=== PATIENT | female | born 1970 | race Caucasian/White ===

== ENCOUNTER → 2019-06-01 13:59 | Outpatient (CLI) | payer MEDICAID, SELFPAY ==
--- NOTE | 2019-06-01 14:02 | US_ITS ---
STUDY: THYROID ULTRASOUND REASON FOR EXAM: Female, 49 years old. Voice changes, evaluate nodule on palpation. TECHNIQUE: Ultrasound evaluation of the thyroid was performed with real-time and static hurley-scale imaging. COMPARISON: None. FINDINGS: RIGHT LOBE: The right lobe of the thyroid gland measures 5.4 x 2.3 x 2.0 cm. There is a homogeneous echotexture. There are no demonstrated solid, cystic or complex lesions. LEFT LOBE: The left lobe of the thyroid gland measures 5.2 x 1.9 x 1.2 cm. There is a homogeneous echotexture. There are no demonstrated solid, cystic or complex lesions. ISTHMUS: The isthmus measures 3.0 mm. The regional lymph nodes are normal. US/Thyroid IMPRESSION: Normal ultrasound examination of the thyroid. Electronically Signed: Lizeth Farias MD at 0:11 EST , Service support ,
== END ==
PROVIDERS: Family Provider Family Medicine; PCP Family Medicine; Referring Provider Family Medicine; Visit Provider Family Medicine
DX: E04.1 Nontoxic single thyroid nodule (principal)
CPT/HCPCS: 76536

== ENCOUNTER → 2019-09-25 16:33 | Outpatient (CLI) | payer MEDICAID, SELFPAY ==
[2016-10-03 00:17] VITALS: BMI 26.4
[2019-09-25 17:11] LABS: Absolute Lymphocyte Count 2.24 X10^3/uL (0.83-4.51); Absolute Neutrophil Count 2.9 X10^3/uL (2.0-7.7); Basophil# 0.02 X10^3/uL; Basophil% 0.3 % (0-1); Eosinophil# 0.25 X10^3/uL; Eosinophils% 4.2 % (0-5); Hematocrit 47.2 % (37-47); Hemoglobin 15.6 g/dL (12.0-15.0); Lymphocyte # 2.24 X10^3/ul (4.0); Mean Corp Hgb Conc 33.1 g/dL (32-36); Mean Corpuscular Hgb 30.8 pg (27.0-32.0); Mean Corpuscular Volume 93.3 fL (81-99); Mean Platelet Vol. 10.9 fl (6.2-12.0); Monocyte# 0.45 X10^3/uL; Monocyte% 7.6 % (0-10); NRBC Flagged by Analyzer 0 % (0-5); Neutrophil # 2.93 X10^3/uL (2.7-7.7); Neutrophil % 49.7 % (47-70); Platelet Count 198 K/mm3 (150-450); RBC Distribution Width CV 12.3 % (11.6-14.6); RBC Distribution Width SD 42.3 fl (35.1-43.9); Red Blood Count 5.06 M/mm3 (4.2-5.4); White Blood Count 5.9 K/mm3 (4.4-11.0)
[2019-09-25 17:50] LABS: Anion Gap 4 (5-15); BUN 8 mg/dL (7-18); BUN/Creat Ratio 10.2 RATIO (10-20); Calcium,Total 9.1 mg/dL (8.5-10.1); Chloride 103 mmol/L (98-107); Creatinine, Serum 0.78 mg/dL (0.55-1.02); EST Glomerular Filtration Rate 84 mL/min (>60); Est Glom Filt Rate - Afr Amer 101 mL/min (>60); Glucose 61 mg/dL (74-106); Potassium 3.1 mmol/L (3.5-5.1); Sodium Level 138 mmol/L (136-145); Thyroid Stim Hormone (TSH) 0.67 uIU/mL (0.358-3.74)
== END ==
PROVIDERS: PCP Family Medicine; Visit Provider Family Medicine
DX: J45.909 Unspecified asthma, uncomplicated (principal); F17.200 Nicotine dependence, unspecified, uncomplicated; R53.83 Other fatigue; R63.4 Abnormal weight loss
CPT/HCPCS: 36415; 80048; 84443; 85025

== ENCOUNTER → 2020-12-06 14:00 | Outpatient (CLI) | payer MEDICAID, SELFPAY ==
[2016-10-03 00:17] VITALS: BMI 26.4
[2020-12-06 16:14] LABS: Anion Gap 5 (5-15); BUN 9 mg/dL (7-18); Calcium,Total 9.1 mg/dL (8.5-10.1); Chloride 105 mmol/L (98-107); Creatinine, Serum 0.69 mg/dL (0.55-1.02); EST Glomerular Filtration Rate 96 mL/min (>60); Est Glom Filt Rate - Afr Amer 116 mL/min (>60); Glucose 80 mg/dL (74-106); Potassium 3.4 mmol/L (3.5-5.1); Sodium Level 138 mmol/L (136-145); T4 Free Direct 1.07 ng/dL (0.76-1.46); Thyroid Stim Hormone (TSH) 1.39 uIU/mL (0.358-3.74)
== END ==
PROVIDERS: PCP Family Medicine; Referring Provider Family Medicine; Visit Provider Family Medicine
DX: E03.9 Hypothyroidism, unspecified (principal); E87.6 Hypokalemia
CPT/HCPCS: 36415; 80048; 84439; 84443

== ENCOUNTER → 2022-05-31 | Outpatient (CLI) | payer MEDICAID, SELFPAY ==
--- NOTE | 2022-05-31 17:59 | MRI_ITS ---
STUDY: MRI BRAIN WITH AND WITHOUT CONTRAST REASON FOR EXAM: Female, 52 years old. Migraine headaches; Hx loss of consciousness -- With attention to the pituitary fossa TECHNIQUE: Standardized multiplanar fat and water weighted pulse sequences were obtained. IV 10 cc clariscan was administered for the contrast portion of the examination. COMPARISON: None. FINDINGS: Normal size of the ventricles and extra-axial spaces for the patient''s age. Normal white matter tracts of the supratentorial brain. Normal bilateral basal ganglia. Normal thalami. There is no extra-axial fluid accumulation. Normal flow voids within the major intracranial circulation suggesting patency by spin echo criteria. Normal venous enhancement. There is no enhancing intra-axial or extra-axial abnormality. Pituitary is normal in size for stated age measuring approximately 7 x 11.8 x 6 mm and demonstrates homogeneous enhancement following contrast administration. Normal Infundibular stalk, optic chiasm and hypothalamus. Normal tectal plate and pineal gland. Normal midbrain, sunil and medulla. Normal cerebellum. Normal basal cisterns. Normal bilateral temporal bones. Normal bilateral internal auditory canals. No demonstrated orbital abnormality, within the constraints of a routine brain study. Normal visualized paranasal sinuses. Normal calvarium and skull base. Normal visualized soft tissue structures. Normal visualized upper cervical spine. MRI/Brain W/WO Contrast IMPRESSION: Normal unenhanced and enhanced MRI of the brain. No evidence for pituitary mass. Microadenoma may be considered however if clinically warranted Electronically Signed: Omar Bain MD at 21:54 EST ,
[2022-05-31 19:01] LABS: CREATININE FINGERSTICK < 0.9 mg/dL (0.55-1.02); EGFR FINGERSTICK > 60.0000 mL/min (>60)
== END | disposition home or self-care (01) ==
LOC: PSN 17:59
PROVIDERS: PCP Nurse Practitioner Family; Referring Provider Psychiatry & Neurology Neurology; Visit Provider Psychiatry & Neurology Neurology
DX: D35.2 Benign neoplasm of pituitary gland (principal); G40.909 Epilepsy, unspecified, not intractable, without status epilepticus; G43.909 Migraine, unspecified, not intractable, without status migrainosus
CPT/HCPCS: 70553; A9575

== ENCOUNTER → 2022-06-05 | Outpatient (CLI) | payer MEDICAID, SELFPAY ==
--- NOTE | 2022-06-05 10:22 | TELEMED_ITS ---
[facility] has confirmed receipt of a request for visit. This document confirms receipt of the order initiating the consult. To find the results of the consultation, please view the patient's reports for the scanned Telemed Consult.
== END | disposition home or self-care (01) ==
LOC: PSN 09:08
PROVIDERS: PCP Nurse Practitioner Family; Referring Provider Psychiatry & Neurology Neurology; Visit Provider Psychiatry & Neurology Neurology
DX: G40.909 Epilepsy, unspecified, not intractable, without status epilepticus (principal); G43.109 Migraine with aura, not intractable, without status migrainosus
CPT/HCPCS: 95819

== ENCOUNTER 2022-10-19 01:43 | Emergency (ER) | payer MEDICAID, SELFPAY ==
[2022-10-19 01:47] VITALS: BP 143/93; PULSE 98; RESP 18; TEMP 36.6; O2SAT 100; BMI 25.4
--- NOTE | 2022-10-19 02:19 | RAD_ITS ---
INDICATION: cough sob EXAMINATION/TECHNIQUE: X-RAY - XR Chest 1 View COMPARISON: None. FINDINGS: LINES/DEVICES: None. LUNGS: No consolidation, edema or effusion. No pneumothorax. MEDIASTINUM AND CARDIOVASCULAR STRUCTURES: Cardiac silhouette not enlarged. BONES AND SOFT TISSUES: Unremarkable. RAD/Chest 1 View (Portable) IMPRESSION: No radiographic evidence of acute cardiopulmonary disease. Electronically Signed: Wan Lofton MD at 3:35 EDT ,
--- NOTE | 2022-10-19 02:20 | EKG12_ITS ---
Test Reason : DYSRHYTHMIA Blood Pressure : / mmHG Vent. Rate : 090 BPM Atrial Rate : 090 BPM P-R Int : 154 ms QRS Dur : 084 ms QT Int : 390 ms P-R-T Axes : 071 063 070 degrees QTc Int : 477 ms Normal sinus rhythm Normal ECG Confirmed by KYLE HURST, PATY ([id number]), digital editor CORAZON MARI ([id number]) on 10/22/2022 10:57:35 AM Referred By: SHAGGY Confirmed By:ALEJANDRA WRIGHT MD
--- NOTE | 2022-10-19 02:20 | CT_ITS ---
INDICATION: altered LOC EXAMINATION: CT BRAIN - CT Head or Brain W/O Contrast Injection TECHNIQUE: Multiple axial images were obtained of the head without intravenous contrast. A radiation dose optimization technique was used for this scan. IV Contrast dosage and agent: None. COMPARISON: MRI brain May 31, 2022 FINDINGS: BRAIN PARENCHYMA: No intra- or extra-axial hemorrhage. No evidence of acute infarct. No intracranial mass or mass effect. Unremarkable white matter for age. There is preservation of the hurley/white matter interface. Posterior fossa structures are unremarkable. CSF SPACES: Cerebral volume appropriate for age. No hydrocephalus. Basal cisterns are patent. CALVARIUM, SKULL BASE, PARANASAL SINUSES AND MASTOID AIR CELLS: No acute osseous finding. Paransasal sinuses are clear. Mastoid air cells are clear. ORBITS: Both globes, extraocular muscles, optic nerves and retrobulbar fat appear unremarkable. ASPECTS Score for Acute Strokes: 10 CT/Brain/Head without Contrast IMPRESSION: Negative Brain CT without contrast. Electronically Signed: Wan Lofton MD at 3:59 EDT ,
--- NOTE | 2022-10-19 02:21 | EX.ED.DYSGE1 ---
HPI History of Present Illness Chief Complaint: General Illness Narrative Narrative: From EMS report, the patient was driving and pulled over to sleep. Police checked her out and she was extremely somnolent and they called EMS, who transported her here for being abnormally lethargic. Limited evaluation since the patient is nonverbal at this time and very lethargic. [facility] Medical History Anxiety Arthritis Carpal tunnel syndrome Chronic constipation COPD (chronic obstructive pulmonary disease) Depression Dyslipidemia Eczema Fibromyalgia Heart disease History of blood transfusion History of breast lump Hypertension Hypoglycemia Hypokalemia Lumbar radiculopathy, right Neuropathy Osteoarthritis of right hip Home Medications potassium chloride 20 mEq tablet,extended release(part/cryst) (Klor-Con M) 20 meq PO DAILY 04/24/16 [History Last Taken 09/29/16] folic acid 1 mg tablet 1 mg PO DAILY 07/19/21 [History Last Taken Unknown] gabapentin 300 mg capsule 300 mg PO TID 07/19/21 [History Last Taken Unknown] loratadine 10 mg tablet 10 mg PO DAILY 07/19/21 [History Last Taken Unknown] montelukast 10 mg tablet 10 mg PO DAILY 07/19/21 [History Last Taken Unknown] oxybutynin chloride 5 mg tablet 5 mg PO DAILY 07/19/21 [History Last Taken Unknown] thiamine HCl (vitamin B1) 100 mg tablet 100 mg PO DAILY 07/19/21 [History Last Taken Unknown] topiramate 50 mg tablet 50 mg PO BID #60 tabs 02/15/22 [Rx Last Taken Unknown] ubrogepant 50 mg tablet (Ubrelvy) 50 mg .Route .COMPLEX #14 tabs 02/15/22 [Rx Last Taken Unknown] Allergy/AdvReac Type Severity Reaction Status Date / Time aspirin [ASA] Allergy Hives Verified 10/19/22 02:07 Penicillins [PCN] Allergy Hives Verified 10/19/22 02:07 cephalexin [From Keflex] AdvReac Unknown Verified 10/19/22 02:07 Surgical History History of appendectomy History of bladder surgery History of breast surgery History of cholecystectomy History of hand surgery History of partial hysterectomy Social History Smoking Status: Current some day smoker tobacco type: cigarettes second hand exposure: Yes alcohol intake: former substance use type: marijuana ROS ROS ED Review of Systems ROS Unobtainable: due to mental status EXAM Physical Exam Const Vital Signs: 10/19/22 01:47 10/19/22 01:51 10/19/22 04:27 Temperature 98 F Temperature Source Temporal Pulse Rate 98 91 Respiratory Rate 18 12 Respiratory Pattern Normal Blood Pressure 143/93 H 151/94 H Blood Pressure Mean 109 113 Pulse Ox 100 98 Oxygen Delivery Method Room Air Room Air Positive well nourished and well developed Constitutional Narrative: Very lethargic General Appearance ED: well developed HEENT Reports moist mucous membranes normocephalic and atraumatic Eyes PERRL and EOMs intact bilaterally Neck full ROM, no lymphadenopathy and supple Neck Narrative: No meningismus Chest Wall inspection of chest normal and palpation of chest normal Resp normal respiratory effort and clear to auscultation bilaterally Cardio regular rate, regular rhythm and no murmurs Rate: Negative for bradycardia or tachycardic GI non-tender, non-distended and no masses Auscultation: normoactive bowel sounds Palpation: soft Back/Spine no CVA tenderness General Back: other FROM Extremity normal to inspection General Extremety ED: Negative for edema, pulses abnormal or tenderness General Extremity: Negative for edema or pulses abnormal Neuro CN's II-XII intact bilaterally and no sensory deficits noted Neuro Narrative: Very lethargic. Moans in response to questions, too lethargic to follow commands. Airway and breathing intact. Localizing to pain in all 4 extremities equally. Fenton Coma Scale: document GCS findings To Pain Localizes to Pain Incomprehensible 9 Skin no rashes or lesions noted and no wounds MDM MDM MDM Narrative Medical decision making narrative: I reviewed EMR records, showing that she has a history of COPD. She is currently not hypoxic and not on exogenous oxygenation. Wide differential here, including primary [employer] pathology, respiratory infection, hypercapnia, metabolic disorder, cardiopulmonary etiology. This is not an all-inclusive list. And attempting to get an ABG and rule out acute hypercapnia, the patient was verbally and physically fighting a respiratory therapist saying no I do not want that. Therefore it was canceled. In working her up, her D-dimer is elevated, her chest x-ray 1 view shows COPD hyperexpansion but is otherwise negative for any acute infiltrates or pneumothorax. Therefore she was sent for CT angiography of the chest, after the CT of the head that we obtained, those images appear normal, and those of the chest appear normal as well. I reviewed the interpretation for both of the studies, and I agree with the radiologist's interpretation of them both. The rest of her work-up is unremarkable except for slightly low potassium at 3.3 and toxicology positive for amphetamines, there are many medications that can cross-react with this screening test, however the ones that she has according to the EMR to my knowledge do not cross-react with it. All of this is academic, I do not think that amphetamine intoxication would necessarily be causing her to be overly tired anyhow. There is no specific treatment indicated for any of the CT chest findings. On reevaluation, she is arousable and able to talk, but sleepy. When asked if she did not get much sleep last night, she nods yes, and when asked if she has any recent illness or cold symptoms she states no. Therefore since the work-up was unremarkable except for potassium, I will give her a dose of IV potassium while she has been observed here. Her vital signs are normal, she is not hypoxic, she has no evidence of metabolic acidosis, and if she is awake and alert enough to refuse the ABG, I do not think checking a stat PCO2 is necessary. When she is awake enough to get out of bed and function more normally, she may be discharged home. Lab Data Attestation: I reviewed the patient's lab results. Labs: Laboratory Results - last 24 hr 10/19/22 10/19/22 10/19/22 02:30 02:30 02:30 WBC 4.6 RBC 4.43 Hgb 13.6 Hct 41.0 MCV 92.6 MCH 30.7 MCHC 33.2 RDW Std Deviation 42.7 RDW Coeff of Jake 12.4 Plt Count 188 MPV 10.0 Immature Gran % (Auto) 0.200 Neut % (Auto) 46.1 L Lymph % (Auto) 39.6 [place] % (Auto) 10.0 Eos % (Auto) 3.7 Baso % (Auto) 0.4 Absolute Neuts (auto) 2.1 Absolute Lymphs (auto) 1.83 Nucleated RBC % 0 D-Dimer Quant (PE/DVT) 0.69 H* Sodium 140 Potassium 3.3 L Chloride 104 Carbon Dioxide 32.0 Anion Gap 4 L BUN 14 Creatinine 0.59 Estim Creat Clear Calc 81.94 Est GFR (MDRD) Af Amer 138 Est GFR (MDRD) Non-Af 114 BUN/Creatinine Ratio 23.7 H Glucose 107 H Calcium 9.3 Troponin I High Sens 4 B-Natriuretic Peptide Urine Color Urine Clarity Urine pH Ur Specific [place] Urine Protein Urine Glucose (UA) Urine Ketones Urine Occult Blood Urine Nitrite Urine Bilirubin Urine Urobilinogen Ur Leukocyte Esterase Urine RBC Urine WBC Ur Squamous Epith Cells Urine Bacteria Urine Mucus Urine Opiates Screen Urine Methadone Screen Ur Barbiturates Screen Ur Phencyclidine Scrn Ur Amphetamines Screen MDMA (Ecstasy) Screen U Benzodiazepines Scrn Urine Cocaine Screen U Cannabinoids Screen Ur Drug Screen Comment Ethyl Alcohol 10/19/22 10/19/22 10/19/22 02:30 02:45 02:45 WBC RBC Hgb Hct MCV MCH MCHC RDW Std Deviation RDW Coeff of Jake Plt Count MPV Immature Gran % (Auto) Neut % (Auto) Lymph % (Auto) [place] % (Auto) Eos % (Auto) Baso % (Auto) Absolute Neuts (auto) Absolute Lymphs (auto) Nucleated RBC % D-Dimer Quant (PE/DVT) Sodium Potassium Chloride Carbon Dioxide Anion Gap BUN Creatinine Estim Creat Clear Calc Est GFR (MDRD) Af Amer Est GFR (MDRD) Non-Af BUN/Creatinine Ratio Glucose Calcium Troponin I High Sens B-Natriuretic Peptide 6.7 Urine Color Yellow Urine Clarity Clear Urine pH 7.0 Ur Specific [place] 1.010 Urine Protein 15 H Urine Glucose (UA) Normal Urine Ketones Negative Urine Occult Blood Negative Urine Nitrite Negative Urine Bilirubin Negative Urine Urobilinogen Normal Ur Leukocyte Esterase 25 H Urine RBC 0 SEEN Urine WBC 0 SEEN Ur Squamous Epith Cells 0 SEEN Urine Bacteria 0 SEEN Urine Mucus 0 SEEN Urine Opiates Screen NEGATIVE Urine Methadone Screen NEGATIVE Ur Barbiturates Screen NEGATIVE Ur Phencyclidine Scrn NEGATIVE Ur Amphetamines Screen POSITIVE H MDMA (Ecstasy) Screen NEGATIVE U Benzodiazepines Scrn NEGATIVE Urine Cocaine Screen NEGATIVE U Cannabinoids Screen NEGATIVE Ur Drug Screen Comment Ethyl Alcohol 10/19/22 03:44 WBC RBC Hgb Hct MCV MCH MCHC RDW Std Deviation RDW Coeff of Jake Plt Count MPV Immature Gran % (Auto) Neut % (Auto) Lymph % (Auto) [place] % (Auto) Eos % (Auto) Baso % (Auto) Absolute Neuts (auto) Absolute Lymphs (auto) Nucleated RBC % D-Dimer Quant (PE/DVT) Sodium Potassium Chloride Carbon Dioxide Anion Gap BUN Creatinine Estim Creat Clear Calc Est GFR (MDRD) Af Amer Est GFR (MDRD) Non-Af BUN/Creatinine Ratio Glucose Calcium Troponin I High Sens B-Natriuretic Peptide Urine Color Urine Clarity Urine pH Ur Specific [place] Urine Protein Urine Glucose (UA) Urine Ketones Urine Occult Blood Urine Nitrite Urine Bilirubin Urine Urobilinogen Ur Leukocyte Esterase Urine RBC Urine WBC Ur Squamous Epith Cells Urine Bacteria Urine Mucus Urine Opiates Screen Urine Methadone Screen Ur Barbiturates Screen Ur Phencyclidine Scrn Ur Amphetamines Screen MDMA (Ecstasy) Screen U Benzodiazepines Scrn Urine Cocaine Screen U Cannabinoids Screen Ur Drug Screen Comment Ethyl Alcohol < 3.0 Radiography Diagnostic Testing: Clinical Impression(s) from Imaging Studies Chest X-Ray 10/19/22 02:19 IMPRESSION: No radiographic evidence of acute cardiopulmonary disease. Electronically Signed: Wan Lofton MD at 3:35 EDT , Brain CT 10/19/22 02:20 IMPRESSION: Negative Brain CT without contrast. Electronically Signed: Wan Lofton MD at 3:59 EDT , Chest CTA 10/19/22 03:30 IMPRESSION: No evidence of pulmonary embolism Mild peribronchial thickening as can be seen with bronchitis/bronchiolitis with focal endobronchial mucous or debris within posterior left lower lobe bronchus. Mild associated dependent left lower lobe subsegmental atelectasis. Electronically Signed: Wan Lofton MD at 4:52 EDT , Rhythm Strip Rhythm Strip: Sinus Rhythm Rate: 90 Ectopy: None EKG Initial EKG: Attestation: I personally reviewed and interpreted this EKG as follows: Interpretation: Sinus Rhythm and No Acute Injury Pattern Discharge Plan Triage Chief Complaint: General Illness ED Provider: Miguel Saul Dx/Rx/DC Orders Clinical Impression: Somnolence Instructions: ED ALOC Prescriptions: No Action oxybutynin chloride 5 mg tablet 5 mg PO DAILY folic acid 1 mg tablet 1 mg PO DAILY thiamine HCl (vitamin B1) 100 mg tablet 100 mg PO DAILY loratadine 10 mg tablet 10 mg PO DAILY montelukast 10 mg tablet 10 mg PO DAILY gabapentin 300 mg capsule 300 mg PO TID Ubrelvy 50 mg tablet 50 mg .ROUTE .COMPLEX Qty: 14 4RF Rx Instructions: Take one tablet PO daily every 2 hours as needed for headache up to two tablets daily. topiramate 50 mg tablet 50 mg PO BID Qty: 60 4RF Rx Instructions: Begin after completing 1 week course of topiramate 25 mg twice a day potassium chloride [Klor-Con M20] 20 MEQ tablet 20 meq PO DAILY Primary Care Provider: Shari Mondragon NP Referrals: Shari Mondragon NP, [employer] [Primary Care Provider] - As Needed Disposition Disposition: Home, Self Care
[2022-10-19 02:38] LABS: Absolute Lymphocyte Count 1.83 X10^3/uL (0.83-4.51); Absolute Neutrophil Count 2.1 X10^3/uL (2.0-7.7); Basophil# 0.02 X10^3/uL; Basophil% 0.4 % (0-1); Eosinophil# 0.17 X10^3/uL; Eosinophils% 3.7 % (0-5); Hemoglobin 13.6 g/dL (12.0-15.0); Lymphocyte # 1.83 X10^3/ul (0.83-4.51); Lymphocyte % 39.6 % (19-41); Mean Corp Hgb Conc 33.2 g/dL (32-36); Mean Corpuscular Hgb 30.7 pg (27.0-32.0); Mean Corpuscular Volume 92.6 fL (81-99); Monocyte# 0.46 X10^3/uL; NRBC Flagged by Analyzer 0 % (0-5); Neutrophil # 2.13 X10^3/uL (2.7-7.7); Neutrophil % 46.1 % (47-70); Platelet Count 188 K/mm3 (150-450); RBC Distribution Width CV 12.4 % (11.6-14.6); RBC Distribution Width SD 42.7 fl (35.1-43.9); Red Blood Count 4.43 M/mm3 (4.2-5.4); White Blood Count 4.6 K/mm3 (4.4-11.0)
[2022-10-19 02:56] LABS: Anion Gap 4 (5-15); BNP,B-Type NATRIURETIC PEPTIDE 6.7 pg/mL (0-100); BUN 14 mg/dL (7-18); BUN/Creat Ratio 23.7 RATIO (10-20); Calcium,Total 9.3 mg/dL (8.5-10.1); Chloride 104 mmol/L (98-107); Creatinine, Serum 0.59 mg/dL (0.55-1.02); EST Glomerular Filtration Rate 114 mL/min (>60); Est Glom Filt Rate - Afr Amer 138 mL/min (>60); Estimated Creatinine Clearance 81.94 ml/min; Glucose 107 mg/dL (74-106); Potassium 3.3 mmol/L (3.5-5.1); Sodium Level 140 mmol/L (136-145); Troponin-I HS 4 pg/mL (3.0-54.0)
[2022-10-19 03:01] LABS: D-Dimer Quantitative (DVT/PE) 0.69 FEU/ug/m (0.27-0.49)
[2022-10-19 03:28] LABS: Amphetamine Urine VISTA POSITIVE (<1000 ng/mL); Barbiturate Urine VISTA NEGATIVE (< 200 ng/mL); Benzodiazepine Urine VISTA NEGATIVE (< 200 ng/mL); Cocaine Urine VISTA NEGATIVE (< 300 ng/mL); Ecstacy Urine VISTA NEGATIVE (< 500 ng/mL); Methadone Urine VISTA NEGATIVE (< 300 ng/mL); PCP Urine VISTA NEGATIVE (< 25 ng/mL); THC Urine VISTA NEGATIVE (< 50 ng/mL); Vista UDS pH Range 7
--- NOTE | 2022-10-19 03:30 | CT_ITS ---
STUDY: CTA CHEST REASON FOR EXAM: Female, 52 years old. lethargic, elevated d-dimer RADIATION DOSAGE (If Supplied By Facility): CTDIvol = ( 11.58 ) mGy, DLP = ( 284.49 ) mGycm TECHNIQUE: The examination was performed with the intravenous administration of IV 75mL Isovue-370. Post-processing of the angiographic images was performed, with multiplanar reformation and 3D reconstruction. Individualized dose optimization techniques were used for this CT. COMPARISON: Chest radiograph October 19, 2022. FINDINGS: Normal thyroid. Normal enhancement of the bilateral peripheral pulmonary arteries. There is no demonstrated pulmonary embolism. No aortic dissection or aneurysmal dilatation. Mild scattered aortic atherosclerosis. Normal heart and pericardium. No densely calcified coronary atherosclerosis. No mediastinal or hilar adenopathy. Mild bilateral peribronchial thickening with endobronchial mucus or fluid in the posterior left lower lobe. Mild subsegmental atelectasis in left lung base. No consolidation, effusion, pneumothorax. Apical scarring with small bulla. Normal osseous structures. Normal visualized upper abdomen. CT/CTA Chest W/WO Contrast IMPRESSION: No evidence of pulmonary embolism Mild peribronchial thickening as can be seen with bronchitis/bronchiolitis with focal endobronchial mucous or debris within posterior left lower lobe bronchus. Mild associated dependent left lower lobe subsegmental atelectasis. Electronically Signed: Wan Lofton MD at 4:52 EDT ,
[2022-10-19 04:22] LABS: Alcohol, Blood (Medical)-Serum < 3.0 mg/dL
[2022-10-19 04:27] VITALS: BP 151/94; PULSE 91; RESP 12; O2SAT 98
[2022-10-19 04:56] LABS: Bacteria 0 SEEN /hpf (None Seen); Mucous, Urine 0 SEEN /hpf (<or=2+); Red Blood Cells-Urine 0 SEEN /hpf (0-5); Squamous Epithelial Cells - UA 0 SEEN /hpf (5-10); White Blood Cells 0 SEEN /hpf (0-5)
[2022-10-19 05:03] LABS: Glucose, Dipstick Normal (Normal); Ketone-Dipstick Negative (Negative); Leukocyte Esterase-Dipstick 25 /ul (Negative); Nitrite-Dipstick Negative (Negative); Occult Blood-Urine Negative /ul (Negative); Protein-Dipstick 15 mg/dl (Negative); Urine Bilirubin Dipstick Negative (Negative); Urine Urobilinogen Normal (Normal)
[2022-10-19 05:04] LABS: Color, Urine Yellow (Yellow); Urine Clarity Clear (Clear)
[2022-10-19 05:13] VITALS: BP 151/88; PULSE 91; RESP 11; O2SAT 99
[2022-10-19 06:00] VITALS: BP 143/105; PULSE 93; RESP 11; O2SAT 99
--- NOTE | 2022-10-19 07:55 | ED.RN ---
WAKES WITH GENTLE TOUCH. ASSISTED TO BATHROOM. PT TO CHARGE PHONE IN WAITING ROOM SO SHE CAN CALL DAUGHTER FOR A RIDE.
== END 2022-10-19 07:58 | disposition home or self-care (01) ==
PROVIDERS: Emergency Medicine; Emergency Provider Emergency Medicine; PCP Nurse Practitioner Family; Visit Provider Emergency Medicine
DX: R40.0 Somnolence (principal); J44.9 Chronic obstructive pulmonary disease, unspecified; E87.6 Hypokalemia; I10 Essential (primary) hypertension; F17.210 Nicotine dependence, cigarettes, uncomplicated; Z79.899 Other long term (current) drug therapy
CPT/HCPCS: 70450; 71045; 71275; 80048; 80307; 81001; 82077; 83880; 84484; 85025; 85379; 87428; 93005; 99285; Q9967; A4216

== ENCOUNTER 2023-10-03 11:01 | Emergency (ER) | payer MEDICAID, SELFPAY ==
[2023-10-03] VITALS (12 sets, daily range): BP systolic 101–136; BP diastolic 69–103; PULSE 80–107; RESP 12–18; TEMP 36.6–36.8; O2SAT 95–99; BMI 23.9
--- NOTE | 2023-10-03 13:19 | EX.ED.DYSGE1 ---
HPI History of Present Illness Chief Complaint: Weakness Informant: patient Onset/Context/Timing Onset: Weeks (2) Context: Gradual Onset Timing: Continuous Quality: Numbness and tingling Location: Bilateral lower extremities, worse on the right Worsened by: Nothing Relieved by: Nothing Narrative Narrative: Patient presents with numbness, tingling, and weakness in her legs that has been getting worse over the past 2 weeks. Patient was at physical therapy today. Patient was describing her symptoms to the physical therapist. Patient stated she was having pressure over her bladder after she was urinating. Patient states she has had some incontinence of urine. Patient states she still feels the urge to urinate. Patient admits to some numbness over her thighs. Patient states it is worse on the right. Patient states she has bulging disks at L3-L4 and L4-L5. [facility] Medical History Anxiety Arthritis Carpal tunnel syndrome Chronic constipation COPD (chronic obstructive pulmonary disease) Depression Dyslipidemia Eczema Fibromyalgia Heart disease History of blood transfusion History of breast lump Hypertension Hypoglycemia Hypokalemia Lumbar radiculopathy, right Neuropathy Osteoarthritis of right hip Home Medications potassium chloride 20 mEq tablet,extended release(part/cryst) (Klor-Con M) 20 meq PO DAILY 04/24/16 [History Last Taken 09/29/16] folic acid 1 mg tablet 1 mg PO DAILY 07/19/21 [History Last Taken Unknown] gabapentin 300 mg capsule 300 mg PO TID 07/19/21 [History Last Taken Unknown] loratadine 10 mg tablet 10 mg PO DAILY 07/19/21 [History Last Taken Unknown] oxybutynin chloride 5 mg tablet 5 mg PO DAILY 07/19/21 [History Last Taken Unknown] thiamine HCl (vitamin B1) 100 mg tablet 100 mg PO DAILY 07/19/21 [History Last Taken Unknown] topiramate 50 mg tablet 50 mg PO BID #60 tabs 02/15/22 [Rx Last Taken Unknown] ubrogepant 50 mg tablet (Ubrelvy) 50 mg .Route .COMPLEX #14 tabs 02/15/22 [Rx Last Taken Unknown] aripiprazole 5 mg tablet 5 mg PO DAILY 10/03/23 [History Last Taken Unknown] celecoxib 200 mg capsule 200 mg PO DAILY 10/03/23 [History Last Taken Unknown] Allergy/AdvReac Type Severity Reaction Status Date / Time aspirin [ASA] Allergy Hives Verified 10/03/23 11:03 Penicillins [PCN] Allergy Hives Verified 10/03/23 11:03 cephalexin [From Keflex] AdvReac Unknown Verified 10/03/23 11:03 Surgical History History of appendectomy History of bladder surgery History of breast surgery History of cholecystectomy History of hand surgery History of partial hysterectomy Social History Smoking Status: Light Smoker (<10/day) second hand exposure: Yes alcohol intake: former substance use type: marijuana ROS ROS ED Constitutional Constitutional ED: Denies chills or fever(s) Eyes Eyes: Denies blurry vision or change in vision ENT ENT ED: Denies rhinorrhea or sore throat Cardiovascular Cardiovascular: Denies chest pain or palpitations Respiratory/Chest Respiratory/Chest: Denies cough or dyspnea Gastrointestinal Gastrointestinal: Denies nausea or vomiting Genitourinary Genitourinary ED: Denies dysuria or hematuria Musculoskeletal Musculoskeletal: Reports back pain; Denies neck pain Integumentary Denies abscess or rash Neurologic Neurologic: Denies headache(s) or weakness Allergic/Immunologic Allergic/Immunologic ED: Denies mouth swelling or urticaria EXAM Physical Exam Const Vital Signs: 10/03/23 11:03 10/03/23 12:06 Temperature 98.3 F Temperature Source Temporal Pulse Rate 102 H 100 Respiratory Rate 18 18 Blood Pressure 119/92 H 127/90 H Blood Pressure Mean 101 102 Pulse Ox 98 99 Oxygen Delivery Method Room Air Room Air Positive well nourished and well developed General Appearance ED: well developed and NAD HEENT Reports moist mucous membranes Neck supple and no JVD Resp normal respiratory effort and clear to auscultation bilaterally Cardio regular rate and regular rhythm GI non-tender and non-distended Palpation: soft Back/Spine Back/Spine Narrative: There is mild tenderness over the lower lumbar spine and paraspinal muscles. There is no bony crepitance or step-off noted. Range of motion was limited in all motions of the lumbar spine secondary to pain. Strength is 5/5 bilaterally in the lower extremities. Sensation was slightly decreased to light touch on the right. Sensation was intact to light touch on the left lower extremity. Deep tendon reflexes were 1+/4 in the lower extremities bilaterally. Pedal pulses are equal bilaterally. Lumbar Spine / Lower Back: lumbar spinal tenderness L3, L4 and L5 Extremity General Extremety ED: Negative for edema or tenderness General Extremity: Negative for edema Neuro oriented x3 and CN's II-XII intact bilaterally Sensorium / Orientation: alert Motor Exam: strength 5/5 throughout Psych mental status grossly normal Skin skin turgor normal MDM MDM MDM Narrative Medical decision making narrative: Differential diagnosis includes cauda equina syndrome, urinary tract infection, lumbar radiculopathy, and electrolyte abnormality. CBC will be obtained to assess for leukocytosis and anemia. Basic metabolic profile will be obtained to assess for electrolyte abnormality and renal function. Urinalysis will be obtained to assess for urinary tract infection and hematuria. MRI of the lumbar spine will be obtained to assess for cauda equina syndrome. Lab Data Attestation: I reviewed the patient's lab results. Lab results narrative: CBC was reviewed and was within normal limits. Basic metabolic profile was reviewed and was essentially within normal limits. Urinalysis was reviewed. There is no evidence of urinary tract infection or hematuria. Radiography Diagnostic Testing: MRI of the lumbar spine was obtained. There is no evidence of cauda equina syndrome. There is mild degeneration of L3-L4 and L4-L5. There is no spinal stenosis noted. There is some mild narrowing of the L4-L5 neural foramina bilaterally. This was interpreted by the radiologist was also independently reviewed by myself. Treatment and Re-Evaluation :: Patient was given a dose of morphine and Ativan here. Patient is resting comfortably on reevaluation. Patient was advised of her findings. Patient was instructed to follow-up with her primary care physician in 5 to 7 days for further evaluation. Patient understood and was agreeable with the plan. All questions were answered. Discharge Plan Triage Chief Complaint: Weakness ED Provider: Jose Juan Torres Dx/Rx/DC Orders Clinical Impression: Degenerative disc disease, lumbar, Lumbar radiculopathy, right Instructions: ED Back Pain (Acute or Chronic), ED Degenerative Disk Disease Prescriptions: No Action oxybutynin chloride 5 mg tablet 5 mg PO DAILY folic acid 1 mg tablet 1 mg PO DAILY thiamine HCl (vitamin B1) 100 mg tablet 100 mg PO DAILY loratadine 10 mg tablet 10 mg PO DAILY gabapentin 300 mg capsule 300 mg PO TID Ubrelvy 50 mg tablet 50 mg .ROUTE .COMPLEX Qty: 14 4RF Hold Instructions: pt has no refills Rx Instructions: Take one tablet PO daily every 2 hours as needed for headache up to two tablets daily. topiramate 50 mg tablet 50 mg PO BID Qty: 60 4RF Hold Instructions: does not have refill Rx Instructions: Begin after completing 1 week course of topiramate 25 mg twice a day potassium chloride [Klor-Con M20] 20 MEQ tablet 20 meq PO DAILY celecoxib 200 mg capsule 200 mg PO DAILY aripiprazole 5 mg tablet 5 mg PO DAILY Hold Instructions: pt does not have refill Primary Care Provider: Shari Mondragon NP Referrals: Shari Mondragon NP, [facility] [Primary Care Provider] - 3-5 Days Disposition Disposition: Home, Self Care
--- NOTE | 2023-10-03 13:44 | MRI_ITS ---
EXAM: MR LUMBAR SPINE WITHOUT INTRAVENOUS CONTRAST CLINICAL INDICATION: Back pain, incontinence, increased weakness right side TECHNIQUE: Multiplanar and multisequence MR images of the lumbar spine without intravenous contrast. COMPARISON: No relevant prior studies available. FINDINGS: VERTEBRAE: See below. SPINAL CORD: Normal. Normal position and signal intensity of the conus medullaris. SOFT TISSUES: Normal. DISCS/SPINAL CANAL/NEURAL FORAMINA: L1-L2: Normal. Normal disc height and morphology. Normal spinal canal and lateral recesses. Normal neuroforamina. L2-L3: Normal. Normal disc height and morphology. Normal spinal canal and lateral recesses. Normal neuroforamina. L3-L4: Minimal loss of vertebral body height and desiccation. Mild disc bulging, ligamentous hypertrophy and facet arthropathy without significant spinal or neural foraminal stenosis. L4-L5: Mild disc space narrowing and desiccation. Mild disc bulging, ligamentous hypertrophy and facet arthropathy results in mild bilateral neural foraminal stenosis. No significant spinal stenosis. L5-S1: Normal disc height and morphology. Mild bilateral facet arthropathy. Normal spinal canal and lateral recesses. Normal neuroforamina. MRI/Spine Lumbar (Routine) IMPRESSION: 1. Mild disc degeneration at L3-4 and L4-5 without spinal stenosis. 2. Narrowing of L4-5 neural foramina as described. Electronically Signed: Zach Anne MD at 16:02 EDT ,
[2023-10-03] MEDS: Morphine 4 MG/ML Syringe IV (14:10)
[2023-10-03 14:12] LABS: Absolute Lymphocyte Count 2.33 X10^3/uL (0.83-4.51); Absolute Neutrophil Count 3.6 X10^3/uL (2.0-7.7); Basophil# 0.03 X10^3/uL; Basophil% 0.5 % (0-1); Eosinophil# 0.16 X10^3/uL; Eosinophils% 2.4 % (0-5); Hematocrit 42.2 % (37-47); Hemoglobin 13.8 g/dL (12.0-15.0); Lymphocyte # 2.33 X10^3/ul (0.83-4.51); Lymphocyte % 35.2 % (19-41); Mean Corp Hgb Conc 32.7 g/dL (32-36); Mean Corpuscular Hgb 29.9 pg (27.0-32.0); Mean Corpuscular Volume 91.3 fL (81-99); Mean Platelet Vol. 10.8 fl (6.2-12.0); Monocyte% 7.6 % (0-10); NRBC Flagged by Analyzer 0 % (0-5); Neutrophil # 3.57 X10^3/uL (2.7-7.7); Platelet Count 238 K/mm3 (150-450); RBC Distribution Width CV 12.8 % (11.6-14.6); RBC Distribution Width SD 42.5 fl (35.1-43.9); Red Blood Count 4.62 M/mm3 (4.2-5.4); White Blood Count 6.6 K/mm3 (4.4-11.0)
[2023-10-03] MEDS: Lorazepam 2 MG/ML WCH Syringe 0.5 MG IV (14:26)
[2023-10-03 14:27] LABS: Anion Gap 3 (5-15); BUN 12 mg/dL (7-18); BUN/Creat Ratio 20.6 RATIO (10-20); Calcium,Total 9.3 mg/dL (8.5-10.1); Chloride 106 mmol/L (98-107); Creatinine, Serum 0.58 mg/dL (0.55-1.02); EST Glomerular Filtration Rate 116 mL/min (>60); Est Glom Filt Rate - Afr Amer 140 mL/min (>60); Estimated Creatinine Clearance 93.55 ml/min; Glucose 88 mg/dL (74-106); Potassium 3.4 mmol/L (3.5-5.1); Sodium Level 139 mmol/L (136-145)
[2023-10-03 16:09] LABS: Bacteria 0 SEEN /hpf (None Seen); Mucous, Urine 0 SEEN /hpf (<or=2+); Red Blood Cells-Urine 0 SEEN /hpf (0-5)
[2023-10-03 16:10] LABS: Color, Urine Yellow (Yellow); Glucose, Dipstick Normal (Normal); Ketone-Dipstick Negative (Negative); Leukocyte Esterase-Dipstick 25 /ul (Negative); Nitrite-Dipstick Negative (Negative); Occult Blood-Urine 10 /ul (Negative); Protein-Dipstick 15 mg/dl (Negative); Urine Bilirubin Dipstick Negative (Negative); Urine Clarity Clear (Clear); Urine Urobilinogen 1 mg/dl (Normal)
[2023-10-03 16:19] LABS: Squamous Epithelial Cells - UA 0-5 SEEN /hpf (5-10); White Blood Cells 0-5 SEEN /hpf (0-5)
== END 2023-10-03 18:21 | disposition home or self-care (01) ==
PROVIDERS: Emergency Provider Emergency Medicine; PCP Nurse Practitioner Family; Visit Provider Emergency Medicine
DX: M51.16 Intervertebral disc disorders with radiculopathy, lumbar region (principal); J44.9 Chronic obstructive pulmonary disease, unspecified; F12.90 Cannabis use, unspecified, uncomplicated; F17.200 Nicotine dependence, unspecified, uncomplicated
CPT/HCPCS: 72148; 80048; 81001; 85025; 96374; 96375; 99283; A4216